=== PATIENT | male | born 1975 | race Caucasian/White ===

== ENCOUNTER 2016-07-07 16:53 | Emergency (ER) | payer OTHER ==
[2016-07-07 17:20] VITALS: BP 139/84; PULSE 91; RESP 18; TEMP 98.1; O2SAT 96
--- NOTE | 2016-07-07 18:10 | UCPHY ---
H & P Time Seen by Provider: 07/07/16 18:06 Patient Type: Established HPI/ROS: 41-year-old male presents complaining of acute lower back spasm, given Flexeril by the person covering for his primary care, requesting narcotics here. No loss of bowel or bladder control. No numbness or tingling in his legs. Review of systems General no fever no chills no weakness HEENT no eye pain no eye discharge. No eye redness, no sore throat Respiratory no cough, no shortness of breath Cardiac no chest pain, no peripheral edema GI no abdominal pain, no diarrhea, no constipation, no nausea, no vomiting no flank pain, no hematuria, no dysuria Musculoskeletal positive myalgias, no joint pain, positive back pain Heme no easy bruising, no easy bleeding Endo no polyuria, no polydipsia Skin no rashes, no pruritus Neuro no syncope, no dizziness, no headaches Psych is no suicidal ideation, no homicidal ideation Past Medical/Surgical History: Prior history of back pain Social History: Denies alcohol or drug use Denies abuse of prescription drugs Smoking Status: Never smoked Physical Exam: 41-year-old male alert and oriented in mild distress secondary to lower back spasm, afebrile nontoxic appearance HEENT atraumatic normocephalic, extraocular muscles intact, anicteric Oropharynx negative for erythema negative exudate, tolerating her own secretions Neck supple no meningismus Lungs clear to auscultation bilaterally Heart regular rate and rhythm without murmur rub or gallop Abdomen nondistended normoactive bowel sounds soft nontender Back no CVA tenderness, no step-offs, no spinal tenderness, right paralumbar tenderness to palpation Negative straight leg raise Extremities no cyanosis clubbing or edema Neuro alert and oriented, no focal deficits Constitutional: Initial Vital Signs Temperature (C) 36.7 C 07/07/16 17:16 Heart Rate 91 07/07/16 17:16 Respiratory Rate 18 07/07/16 17:16 Blood Pressure 139/84 H 07/07/16 17:16 O2 Sat (%) 96 07/07/16 17:16 O2 Delivery Mode Room Air Allergies/Adverse Reactions: Penicillins Allergy (Verified 03/15/11 20:33) Home Medications: Medication Instructions Recorded Adderall 10 MG (*) 07/07/16 oxyCODONE/APAP 5/325 [Percocet 1 - 2 tab PO Q12H PRN #16 tab 07/07/16 5/325 (*)] Medical Decision Making ED Course/Re-evaluation: Patient seen and evaluated for lower back spasm/pain I am unable to access the prescription monitoring program, he is requesting narcotics. Patient does not have a record of visiting this facility on a frequent basis for narcotics. Patient's exam consistent with lower back pain/spasm. Impression Low back pain Plan Short-term narcotic prescription.(#16 only) Advised to follow up with his primary care physician Patient also states he is scheduled for physical therapy. Departure - Departure Disposition: Home, Routine, Self-Care Clinical Impression: Back pain Condition: Good Instructions: Low Back Strain (ED), Acute Low Back Pain (ED) Referrals: NONE,[facility] [Other] - As per Instructions Prescriptions: oxyCODONE/APAP 5/325 [Percocet 5/325 (*)] 1 - 2 tab PO Q12H PRN #16 tab PRN Reason: Pain, Severe - PQRS PQRS Measurement: na
== END 2016-07-07 18:24 | disposition home or self-care (01) ==
LOC: CED 16:53
DX: M54.5 Low back pain (principal)